=== PATIENT | female | born 1965 | race Caucasian/White ===

== ENCOUNTER → 2017-09-14 | Outpatient (CLI) | payer OTHER | END | disposition home or self-care (01) | LOC: CFH 13:17 | PROVIDERS: ATTEND Nurse Practitioner | DX: N64.4 Mastodynia (principal) | CPT/HCPCS: 76641; G0204 ==

== ENCOUNTER 2018-10-22 21:28 | Emergency (ER) | payer OTHER ==
[~2018-10-22] VITALS: Ht 162.6 cm; Wt 64.7 kg
--- NOTE | 2018-10-22 22:13 | NUR ---
pt to room from lobby
[2018-10-22] MEDS ORDERED: SODIUM CHLORIDE 0.9% 1,000ML IVBOLUS ONE (22:30)
--- NOTE | 2018-10-22 22:55 | NUR ---
PIV started, labs drawn. IVF infusing.
[2018-10-22 23:00] LABS: BASOPHILS # (AUTO) 0.01 x10^3/uL (0-0.1); BASOPHILS % (AUTO) 0 % (0-1); EOSINOPHILS # (AUTO) 0.02 x10^3/uL (0-0.4); EOSINOPHILS % (AUTO) 0 % (1-7); LYMPHOCYTES # (AUTO) 0.26 x10^3/uL (1-3.4); LYMPHOCYTES % (AUTO) 5 % (22-44); MD NO; MEAN CORPUSCULAR HEMOGLOBIN 31.3 pg (27.0-34.8); MEAN CORPUSCULAR HGB CONC 33.4 g/dL (32.4-35.8); MEAN CORPUSCULAR VOLUME 93.9 fL (80-100); MEAN PLATELET VOLUME 9.1 fL (7.4-10.4); MONOCYTES # (AUTO) 0.13 x10^3/uL (0.2-0.8); MONOCYTES % (AUTO) 2 % (2-9); NEUTROPHILS % (AUTO) 92 % (42-75); PLATELET COUNT 208 x10^3/uL (130-400); RED BLOOD COUNT 4.22 x10^6/uL (3.82-5.3); RED CELL DISTRIBUTION WIDTH 13.7 % (9.6-15.2)
[2018-10-22 23:11] LABS: ALBUMIN 3.8 g/dL (3.4-5.0); CHLORIDE 109 mmol/L (98-107)
[2018-10-22 23:15] LABS: BILIRUBIN, DIRECT 0.2 mg/dL (0.1-0.2)
[2018-10-22 23:17] LABS: ALANINE AMINOTRANSFERASE 30 U/L (12-78); ANION GAP 11 mmol/L (5-15); CALCIUM 8.7 mg/dL (8.5-10.1)
[2018-10-22 23:20] LABS: ALKALINE PHOSPHATASE 48 U/L (45-117); BILIRUBIN,INDIRECT 0.8 mg/dL (0.0-2.0); CREATININE 0.99 mg/dL (0.55-1.02); TOTAL PROTEIN 6.9 g/dL (6.4-8.2)
--- NOTE | 2018-10-22 23:40 | NUR ---
Dr. Santos at bedside to discuss ED findings and D/C information.
--- NOTE | 2018-10-22 23:49 | NUR ---
Patient/Caregiver given discharge instructions and they have confirmed that they understand the instructions. Patient ambulatory with steady gait.
[2018-10-22 23:52] VITALS: BP 105/60
== END 2018-10-22 23:55 | disposition home or self-care (01) ==
LOC: ED 23:18
DX: R11.2 Nausea with vomiting, unspecified (principal); E87.6 Hypokalemia
CPT/HCPCS: 36415; 80048; 80076; 83690; 83735; 85025; 99283

== ENCOUNTER 2019-09-27 13:00 | Day surgery (SDC) | payer OTHER ==
[~2019-09-27] VITALS: Ht 162.6 cm; Wt 63.4 kg
[2019-09-27] MEDS ORDERED: LACTATED RINGERS 1,000 ML IV SCH (13:40)
[2019-09-27] MEDS ORDERED: LINA145C PO (13:42)
[2019-09-27] MEDS ORDERED: OMEP-110 PO (13:42)
[2019-09-27 13:45] VITALS: BP 110/77
[2019-09-27] MEDS ORDERED: MIDAZOLAM 1 MG/ML, 2ML ONE (13:58)
[2019-09-27] MEDS ORDERED: FENTANYL PF 250 MCG/5ML ONE (13:58)
[2019-09-27] MEDS ORDERED: BUPIVACAINE LIPOSOME/PF 10ML INFIL ONE (14:17)
[2019-09-27 14:34] LABS: BASOPHILS # (AUTO) 0.03 x10^3/uL (0-0.1); BASOPHILS % (AUTO) 1 % (0-1); EOSINOPHILS # (AUTO) 0.14 x10^3/uL (0-0.4); EOSINOPHILS % (AUTO) 3 % (1-7); LYMPHOCYTES # (AUTO) 1.82 x10^3/uL (1-3.4); LYMPHOCYTES % (AUTO) 35 % (22-44); MD NO; MEAN CORPUSCULAR HEMOGLOBIN 31.3 pg (27.0-34.8); MEAN CORPUSCULAR HGB CONC 33.4 g/dL (32.4-35.8); MEAN CORPUSCULAR VOLUME 93.8 fL (80-100); MEAN PLATELET VOLUME 8.6 fL (7.4-10.4); MONOCYTES # (AUTO) 0.24 x10^3/uL (0.2-0.8); MONOCYTES % (AUTO) 5 % (2-9); NEUTROPHILS # (AUTO) 3.01 x10^3/uL (1.8-6.8); NEUTROPHILS % (AUTO) 58 % (42-75); PLATELET COUNT 349 x10^3/uL (130-400); RED BLOOD COUNT 4.59 x10^6/uL (3.82-5.3); RED CELL DISTRIBUTION WIDTH 13.2 % (9.6-15.2)
[2019-09-27 14:42] LABS: ALANINE AMINOTRANSFERASE 26 U/L (12-78); ALBUMIN 4.3 g/dL (3.4-5.0); ANION GAP 6 mmol/L (5-15); CHLORIDE 106 mmol/L (98-107); CREATININE 0.91 mg/dL (0.55-1.02)
[2019-09-27 14:44] LABS: ALKALINE PHOSPHATASE 77 U/L (45-117); BILIRUBIN,TOTAL 0.5 mg/dL (0.2-1.0); TOTAL PROTEIN 8.7 g/dL (6.4-8.2)
[2019-09-27] MEDS ORDERED: MEPERIDINE/PF 25MG/0.5ML IVPush PRN (15:00)
[2019-09-27] MEDS ORDERED: FENTANYL PF 100 MCG/2ML IV PRN (15:00)
[2019-09-27] MEDS ORDERED: hydrALAzine 20 MG/ML, 1ML IV PRN (15:00)
[2019-09-27] MEDS ORDERED: ONDANSETRON 2MG/ML, 2ML IVPush PRN (15:00)
[2019-09-27] MEDS ORDERED: PROMETHAZINE 25 MG/ML, 1ML IV PRN (15:00)
[2019-09-27] MEDS ORDERED: METOCLOPRAMIDE 5 MG/ML, 2ML IV PRN (15:00)
[2019-09-27] MEDS ORDERED: ALBUTEROL SULFATE 2.5 MG/3 ML NPPB PRN (15:00)
[2019-09-27] MEDS ORDERED: LABETALOL 5MG/ML, 20ML IV PRN (15:00)
[2019-09-27] MEDS ORDERED: OXYcodone 5 MG/5 ML ORAL.SOL UDC PO PRN (15:00)
[2019-09-27] MEDS ORDERED: HYDROmorphone 1 MG/ML, 1ML INJ IV PRN (15:00)
[2019-09-27] MEDS ORDERED: KETOROLAC 30 MG/1 ML IV PRN (15:00)
[2019-09-27] MEDS ORDERED: SUCCINYLCHOLINE 20 MG/ML, 10ML ONE (15:53)
[2019-09-27] MEDS ORDERED: PROPOFOL 10 MG/ML, 20ML ONE (15:53)
[2019-09-27] MEDS ORDERED: ROCURONIUM 10MG/ML,5ML ONE (15:53)
[2019-09-27] MEDS ORDERED: ONDANSETRON 2MG/ML, 2ML ONE (15:53)
[2019-09-27] MEDS ORDERED: DEXAMETHASONE 4 MG/ML, 1ML ONE (15:53)
== END 2019-09-27 16:45 | disposition home or self-care (01) ==
LOC: OUT 13:00
PROVIDERS: ATTEND Surgery
DX: K64.8 Other hemorrhoids (principal); K64.4 Residual hemorrhoidal skin tags; K21.9 Gastro-esophageal reflux disease without esophagitis; K62.89 Other specified diseases of anus and rectum; Z98.890 Other specified postprocedural states
CPT/HCPCS: 36415; 46255; 80053; 81025; 85025; 88304; 88305; C1729; J0330; J1100; J2250; J2405; J2704; J3010; J7120

== ENCOUNTER → 2020-07-08 | Outpatient (CLI) | payer OTHER ==
[~2020-07-08] MED LIST: LINA145C PO; OMEP-110 PO; OMNIPAQUE 350 MG/ML, 100ML BOTTLE ONE
== END | disposition home or self-care (01) ==
LOC: RAD 14:37
PROVIDERS: ATTEND Nurse Practitioner Family
DX: K57.30 Diverticulosis of large intestine without perforation or abscess without bleeding (principal)
CPT/HCPCS: 74177; Q9967